=== PATIENT | female | born 1930 | race Caucasian/White ===

== ENCOUNTER 2016-05-18 12:02 | Emergency (ER) | payer MEDICARE, OTHER ==
[~2016-05-18] VITALS: Ht 162.6 cm; Wt 65.9 kg
[2016-05-18 11:40] VITALS: BP 129/94; PULSE 89; RESP 13; O2SAT 96
[~2016-05-18 12:02] MED LIST: ACET325T51 PO; ANAS1TAB7 PO; ASPI-973 PO; CHOL10008 PO; CLOP75TA28 PO; CYA1000I IM; DIPY75TA PO; DOCU50CA7 PO; DONE23TA PO; DULO60CA42 PO; FENO145T19 PO; FOLI-52 PO; HYDR-4003 PO; IRON PO; LACT1CAP73 PO; LACT30003 PO; LOPE1TAB13 PO; MIRA25TA PO; NAM10 PO; PANT20T PO; RANI150C4 PO; SIMV5TAB7 PO; THIA100T64 PO; VIT1CAPS8 PO; ZLP5T PO; calcium PO
--- NOTE | 2016-05-18 12:02 | ED.REPORT ---
HPI-Chest Pain 40 and Over Date of Service May 18, 2016 ED Provider: Dr. Winston A demented 86 year old female with a history of heart burn, TIA, and hypercholesterolemia presents to the ED via EMS from [facility] complaining of chest pain described as a pressure on top of the center of her chest. The patient does not remember the onset of symptoms. Per , intermittent chest pain began 3 days ago. She was scheduled to see her doctor on the . Per , the patient was being taken by her therapist to do physical exercises at the onset of symptoms. She takes hydrocortisone twice per day but can have a 3rd if needed. Per , she took 1 today. She has baseline back pain which she normally wears a patch for, and is normally wheelchair bound with an inability to sit up by herself. She requires assistance getting in and out of a car. Nursing Notes Stated Complaint: CHEST PAIN Chief Complaint: Chest Pain Nursing Notes Reviewed: Yes Allergies: Coded Allergies: amoxicillin (Verified Allergy, Unknown, 11/08/14) Scheduled ([Iron]) 65 MG PO DAILY ([calcium]) 5 MG PO DAILY Anastrozole (Anastrozole) 1 Mg Tablet 1 MG PO DAILY Aspirin (Aspirin) 81 Mg Tablet 81 MG PO DAILY Cholecalciferol (Vitamin D3) (Vitamin D3) 1,000 Unit Tab.chew 1,000 UNIT PO BID Clopidogrel (Clopidogrel) 75 Mg Tablet 75 MG PO DAILY Cyanocobalamin (Cyanocobalamin Injection) 1,000 Mcg/1 Ml Vial 1,000 MCG IM WEEKLY Dipyridamole (Dipyridamole) 75 Mg Tablet 75 MG PO BID Docusate Sodium (Docusate Sodium) 50 Mg Capsule 50 MG PO BID Donepezil (Aricept) 23 Mg Tablet 23 MG PO HS Duloxetine (Cymbalta) 60 Mg Capsule.dr 60 MG PO DAILY Fenofibrate Nanocrystallized (Fenofibrate) 145 Mg Tablet 160 MG PO HS Lactobacillus Combo No.11 (Probiotic) 1 Each Cap.sprink 1 EACH PO DAILY Memantine (Namenda) 10 Mg Tablet 10 MG PO BID Mirabegron ER (Myrbetriq) 25 Mg Tab.er.24h 25 MG PO HS Multivitamin/Iron/Folic Acid (Centrum Complete Multivit Tab) 1 Each Tablet 1 TAB PO DAILY Pantoprazole DR (Protonix) 20 Mg Tablet 20 MG PO DAILY Ranitidine (Ranitidine) 150 Mg Capsule 150 MG PO BID Simvastatin (Simvastatin) 5 Mg Tablet 5 MG PO HS Thiamine Mononitrate (Vitamin B-1) 100 Mg Tablet 100 MG PO HS Vit C/Vit E/Lutein/Min/[place]-3 (Ocuvite Softgel) 1 Each Capsule 1 EACH PO DAILY Scheduled PRN Acetaminophen (Acetaminophen) 325 Mg Tablet 500 MG PO BID PRN PRN For Pain Hydrocodone-Acetaminophen 5-325 mg (Hydrocodone-Acetaminophen 5-325 mg) 1 Each Tablet 1 EACH PO BID PRN PRN For Pain Loperamide/Simethicone (Imodium Multi-Symptom Rel Cplt) 1 Each Tablet 1 EACH PO PRN PRN PRN For Diarrhea or Loose Stool Zolpidem (Ambien) 5 Mg Tab 10 MG PO HS PRN PRN For Insomnia Miscellaneous Medications Lactase (Lactase) 3,000 Unit Tablet Unknown Dose PO General Time Seen by MD: 12:02 Transferred From: skilled nursing Chief Complaint Chest pain Hx Obtained From: Patient, EMS Arrived By: Ambulance Sudden in Onset?: Yes Onset Occurred: Onset unknown Symptom Duration: Intermittent Severity: Current: Moderate Severity: Maximum: Moderate Recent Healthcare: No recent doctor visit Similar Sx Previous: No Past Medical History Past Medical History Notes: Last Admit for CVA 03/2013 - records indicate Plavix use (pt does not presently know meds), h/o mild ventriculomegaly Past Medical History Bladder infections- recurrent Insomnia Chronic pain with narcotic dependence Osteoarthritis Vitamin B12 deficiency Breast cancer S/P mastectomy 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 ) Complete sys rev & neg: except as marked. Physical Exam Initial Vital Signs Vital Signs (First) Date Time Temp Pulse Resp B/P Pulse Ox O2 Delivery O2 Flow Rate FiO2 05/18/16 11:40 37.1 89 13 129/94 96 Room Air Initial VS: Reviewed General/Constitutional: Awake, Alert Respiratory / Chest: Atraumatic, Breath sounds NL, Breath sounds = bilat, No respiratory distress, No rales, No rhonchi Cardiovascular: Heart rate NL, Regular rhythm, Heart sounds NL, No gallop, No murmurs, No rubs Abdomen: Atraumatic, No guarding, No rebound Neck: Atraumatic, Full range of motion Lower Extremity / Pelvis / MS: Atraumatic, Inspection NL No edema in lower extremities. Skin: Atraumatic, Color NL, Warm, Dry Patient is pleasantly forgetful. Head / Eyes: Atraumatic, Normocephalic ENT: Atraumatic, Mucous membranes moist Upper Extremity / MS: Atraumatic, Full range of motion Wrist / Hand: Atraumatic, Full range of motion Interpretation & Diagnostics Lab Results Interpretation Result Diagram: 05/18/16 1215 05/18/16 1215 Test 05/18/16 12:15 White Blood Count 7.1th/mm3 (3.8-10.1) Red Blood Count 4.43mil/mm3 (3.90-5.20) Hemoglobin 13.8g/dL (12.0-15.6) Hematocrit 43.5% (35.0-46.0) Mean Corpuscular Volume 98.2fL (81-100) Mean Corpuscular Hemoglobin 31.2pg (27.0-35.0) Mean Corpuscular Hemoglobin Concent 31.7% (32.0-37.0) Red Cell Distribution Width 14.1% (12.3-15.4) Platelet Count 261bil/L (150-400) Neutrophils (%) (Auto) 71.9% (40-74) Lymphocytes (%) (Auto) 19.7% (14-46) Monocytes (%) (Auto) 4.9% (4-12) Eosinophils (%) (Auto) 2.8% (0-5) Basophils (%) (Auto) 0.6% (0-3) Sodium Level 139mEq/L (134-144) Potassium Level 4.3mEq/L (3.5-5.2) Chloride Level 101mEq/L (97-108) Carbon Dioxide Level 24mmol/L (18-29) Blood Urea Nitrogen 15mg/dL (8-27) Creatinine 0.90mg/dL (0.57-1.00) Estimat Glomerular Filtration Rate 85mL/min (>59) Glucose Level 167mg/dL (60-99) Calcium Level 9.7mg/dL (8.5-10.1) Magnesium Level 2.0mg/dL (1.6-2.6) Total Bilirubin 0.3mg/dL (0.0-1.2) Aspartate Amino Transf (AST/SGOT) 25U/L (0-50) Alanine Aminotransferase (ALT/SGPT) 22U/L (0-32) Alkaline Phosphatase 54U/L (25-165) Troponin T 0.010ug/L (0.0-0.011) Total Protein 8.1g/dL (6.4-8.4) Albumin 3.3g/dL (3.4-5.0) ECG Interpretation ECG Interpretation: Rate is 92. Sinus Rhythm. Left anterior fasicular block. Consider left ventricular hypertrophy. No acute ischemia. Time: 12:00 Interpreted by: ED physician X-Ray Chest Interpretation Chest Xray Interpretation: IMPRESSION: No acute process. Dictated by: Pauline Woods M.D. on 05/18/2016 at 12:34 Approved by: Pauline Woods M.D. on 05/18/2016 at 12:34 View: Portable, 1 view Re-Eval/Medical Decision Source of Hx: Old records, EMS Time of Eval: 13:40 Re-Evaluation/Progress Note: Rechecked the patient, explained test results, diagnosis, and plan for discharge. The patient understands and agrees with the plan. All questions addressed. Counseled Regarding: Diagnosis, Lab results, Need for follow-up, When/why to return to ED Discharge & Departure Primary Impression: Anterior chest wall pain Ruled Out: Congestive cardiac failure, STEMI (ST elevation myocardial infarction), Pneumonia Disposition: Home Discharge Condition All VS Reviewed: Yes Condition: Improved Patient Instructions: Chest Pain (ED) Additional Instructions: Your workup today was very reassuring. I found no life threatening causes for the pain that you are experiencing. The fact that I can press on your chest and it reproduces your pain is very encouraging for a musculoskeletal explanation for your pain. It is safe to return back to [place]. You do not need to change any of your medications. If you continue to have this pain, you can use your usual pain medications If you are having more difficulty please feel free to return to the emergency department Thank you for visiting us today Referrals: Oz South MD (PCP) Luis Attestation Portions of this note were transcribed by Tom Culp. I, Dr. Winston, personally performed the history, physical exam, and medical decision-making: I reviewed and confirmed the accuracy for the information in the transcribed note. Signed by: luis Rosario, 05/18/16 1348. copies to: Oz South MD, Shawna L MD May 18, 2016 12:02 Tom Culp May 18, 2016 12:21 Signed by: luis Rosario, 05/18/16 1348. copies to: Oz South MD, Shawna L MD May 18, 2016 12:02 Tom Culp May 18, 2016 12:21
[2016-05-18 12:18] LABS: BASOPHILS % (AUTO) 0.6 % (0-3); EOSINOPHILS % (AUTO) 2.8 % (0-5); MONOCYTES % (AUTO) 4.9 % (4-12); Mean Corpuscular Hemoglobin 31.2 pg (27.0-35.0); Mean Corpuscular Volume 98.2 fL (81-100); NEUTROPHILS % (AUTO) 71.9 % (40-74); Platelet Count 261 bil/L (150-400)
--- NOTE | 2016-05-18 12:36 | DRSVH ---
PROCEDURE: X-RAY CHEST ONE VIEW, PORTABLE ([id number]) INDICATIONS: chest pain TECHNIQUE: One view of the chest was acquired. COMPARISON: [facility], , CHEST 1VW (PORTABLE), 10/06/2011, 16:49. [facility], CHEST 1VW (PORTABLE), 08/19/2011, 9:37. [facility], CHEST 2VW, 07/13/2012, 10 :58. FINDINGS: Surgical changes and devices: None. Lungs and pleura: No pleural effusions or pneumothorax. Lungs are clear. Mediastinum: Mediastinal contours appear normal. Heart size is normal. Bones and chest wall: No suspicious bony lesions. Overlying soft tissues appear unremarkable. IMPRESSION: No acute process. Dictated by: Pauline Woods M.D. on 05/18/2016 at 12:34 Approved by: Pauline Woods M.D. on 05/18/2016 at 12:34
[2016-05-18 12:42] LABS: TROPONIN T 0.01 ug/L (0.0-0.011)
[2016-05-18 14:53] VITALS: BP 140/96; PULSE 75; RESP 16; O2SAT 98
== END 2016-05-18 14:20 | disposition home or self-care (01) ==
LOC: EDBD 12:02 → SED 12:02
DX: R07.89 Other chest pain (principal); M54.9 Dorsalgia, unspecified; I10 Essential (primary) hypertension; K21.9 Gastro-esophageal reflux disease without esophagitis; F03.90 Unspecified dementia, unspecified severity, without behavioral disturbance, psychotic disturbance, mood disturbance, and anxiety; E78.5 Hyperlipidemia, unspecified; Z86.73 Personal history of transient ischemic attack (TIA), and cerebral infarction without residual deficits; Z79.82 Long term (current) use of aspirin; Z87.891 Personal history of nicotine dependence; Z88.1 Allergy status to other antibiotic agents

== ENCOUNTER 2016-10-08 15:58 | Emergency (ER) | payer MEDICARE, OTHER ==
[~2016-10-08] VITALS: Ht 170.2 cm; Wt 84.1 kg
[2016-10-08 16:10] VITALS: BP 151/101; PULSE 95; RESP 16; O2SAT 97
--- NOTE | 2016-10-08 16:10 | ED.REPORT ---
HPI-General Illness Date of Service Oct 08, 2016 ED Provider: Quique Fitzgerald MD A demented 86 year old female with a history of TIA, hypertension, hyperlipidemia, and L breast cancer s/p mastectomy (in remission) presents to the ED via EMS from [facility] with generalized weakness that began a few weeks ago but became increasingly worse this morning. reports that it has been extremely difficult to move the patient from her bed onto the wheelchair. Patient is currently expressing concern for a TIA because of visual disturbances and left-sided weakness that began this morning. She denies any recent fever, chills, nausea, vomiting, cough, abdominal pain, urinary retention or dysuria. Current medication list includes aspirin and Plavix. Nursing Notes Stated Complaint: EXCESSIVE WEAKNESS Nursing Notes Reviewed: Yes Allergies: Coded Allergies: amoxicillin (Verified Allergy, Unknown, 11/08/14) Scheduled ([Iron]) 65 MG PO DAILY ([calcium]) 5 MG PO DAILY Anastrozole (Anastrozole) 1 Mg Tablet 1 MG PO DAILY Aspirin (Aspirin) 81 Mg Tablet 81 MG PO DAILY Cholecalciferol (Vitamin D3) (Vitamin D3) 1,000 Unit Tab.chew 1,000 UNIT PO BID Clopidogrel (Clopidogrel) 75 Mg Tablet 75 MG PO DAILY Cyanocobalamin (Cyanocobalamin Injection) 1,000 Mcg/1 Ml Vial 1,000 MCG IM WEEKLY Dipyridamole (Dipyridamole) 75 Mg Tablet 75 MG PO BID Docusate Sodium (Docusate Sodium) 50 Mg Capsule 50 MG PO BID Donepezil (Aricept) 23 Mg Tablet 23 MG PO HS Duloxetine (Cymbalta) 60 Mg Capsule.dr 60 MG PO DAILY Fenofibrate Nanocrystallized (Fenofibrate) 145 Mg Tablet 160 MG PO HS Lactobacillus Combo No.11 (Probiotic) 1 Each Cap.sprink 1 EACH PO DAILY Memantine (Namenda) 10 Mg Tablet 10 MG PO BID Mirabegron ER (Myrbetriq) 25 Mg Tab.er.24h 25 MG PO HS Multivitamin/Iron/Folic Acid (Centrum Complete Multivit Tab) 1 Each Tablet 1 TAB PO DAILY Pantoprazole DR (Protonix) 20 Mg Tablet 20 MG PO DAILY Ranitidine (Ranitidine) 150 Mg Capsule 150 MG PO BID Simvastatin (Simvastatin) 5 Mg Tablet 5 MG PO HS Thiamine Mononitrate (Vitamin B-1) 100 Mg Tablet 100 MG PO HS Vit C/Vit E/Lutein/Min/[place]-3 (Ocuvite Softgel) 1 Each Capsule 1 EACH PO DAILY Scheduled PRN Acetaminophen (Acetaminophen) 325 Mg Tablet 500 MG PO BID PRN PRN For Pain Hydrocodone-Acetaminophen 5-325 mg (Hydrocodone-Acetaminophen 5-325 mg) 1 Each Tablet 1 EACH PO BID PRN PRN For Pain Loperamide/Simethicone (Imodium Multi-Symptom Rel Cplt) 1 Each Tablet 1 EACH PO PRN PRN PRN For Diarrhea or Loose Stool Zolpidem (Ambien) 5 Mg Tab 10 MG PO HS PRN PRN For Insomnia Miscellaneous Medications Lactase (Lactase) 3,000 Unit Tablet Unknown Dose PO General Time Seen by MD: 16:07 Chief Complaint Weakness Hx Obtained From: Patient Arrived By: Ambulance Sudden in Onset?: No Onset Occurred: More than a week ago... 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 h/o mild dementia Reports: GERD, Hyperlipidemia, Hypertension, Transient ischemic attack Reports: Dementia Past Surgical History Mastectomy L breast Lumbar laminectomy L hemiarthroplasty in 2011 Reports: Cataract surgery, Hysterectomy, Tonsillectomy Smoking History Former Smoker Social History Alcohol Use: "Social" Other Social History: , Lives in [place] Ambulatory Status Wheelchair Review of Systems Full Review of Systems Constitutional: Denies: Chills, Fever GI: Denies: Abdominal pain, Nausea, Vomiting Female: Denies: Dysuria, Urination decreased Neurologic: Reports: Vision change, Weakness (Left-sided) Complete sys rev & neg: except as marked. Physical Exam Vital Signs Vital Signs Date Time Temp Pulse Resp B/P Pulse Ox O2 Delivery O2 Flow Rate FiO2 10/08/16 16:10 36.7 95 16 151/101 97 Room Air Initial VS: Reviewed Neck: Supple, Non-tender, Full range of motion Skin: Warm, Dry, No cyanosis Psychiatric: Mood/affect normal, Behavior normal, Normal thought content General/Constitutional: Awake, Alert, No acute distress, Well appearing, Well developed Head / Eyes: Atraumatic, Normocephalic, PERRL Respiratory / Chest: Atraumatic, Breath sounds NL, Breath sounds = bilat, No respiratory distress Cardiovascular: Heart rate NL, Regular rhythm, Heart sounds NL Lower Ext Edema: Positive: Bilateral 1+ Abdomen: Atraumatic, Soft, Non-tender Upper Extremities Upper Extremity / MS: Atraumatic, Inspection NL, Neurologic intact, Vascular intact Lower Extremity / Pelvis / MS: Atraumatic, Inspection NL, Vascular intact LOWER EXTREMITIES: Bilateral weakness in the lower extremities Interpretation & Diagnostics Lab Results Interpretation Result Diagram: 10/08/16 1640 10/08/16 1640 Test 10/08/16 16:40 10/08/16 17:28 White Blood Count 7.9th/mm3 (3.8-10.1) Red Blood Count 4.28mil/mm3 (3.90-5.20) Hemoglobin 13.6g/dL (12.0-15.6) Hematocrit 42.4% (35.0-46.0) Mean Corpuscular Volume 99.1fL (81-100) Mean Corpuscular Hemoglobin 31.8pg (27.0-35.0) Mean Corpuscular Hemoglobin Concent 32.1% (32.0-37.0) Red Cell Distribution Width 13.5% (12.3-15.4) Platelet Count 198bil/L (150-400) Neutrophils (%) (Auto) 74.1% (40-74) Lymphocytes (%) (Auto) 14.3% (14-46) Monocytes (%) (Auto) 8.4% (4-12) Eosinophils (%) (Auto) 2.4% (0-5) Basophils (%) (Auto) 0.4% (0-3) Prothrombin Time 9.7sec (8.1-12.5) Prothromb Time International Ratio 0.91ratio Sodium Level 141mEq/L (134-144) Potassium Level 4.3mEq/L (3.5-5.2) Chloride Level 102mEq/L (97-108) Carbon Dioxide Level 23mmol/L (18-29) Blood Urea Nitrogen 14mg/dL (8-27) Creatinine 0.95mg/dL (0.57-1.00) Estimat Glomerular Filtration Rate 80mL/min (>59) Glucose Level 150mg/dL (60-99) Calcium Level 9.6mg/dL (8.5-10.1) Magnesium Level 1.9mg/dL (1.6-2.6) Total Bilirubin 0.2mg/dL (0.0-1.2) Aspartate Amino Transf (AST/SGOT) 45U/L (0-50) Alanine Aminotransferase (ALT/SGPT) 30U/L (0-32) Alkaline Phosphatase 66U/L (25-165) Troponin T < 0.010ug/L (0.0-0.011) Total Protein 7.5g/dL (6.4-8.4) Albumin 3.5g/dL (3.4-5.0) Urine Color Yellow (YELLOW) Urine Appearance Clear (CLEAR,HAZY) Urine pH 5.5 (5.0-8.0) Urine Specific [place] 1.020 (1.003-1.035) Urine Protein Negativemg/dL (NEG,TRACE) Urine Glucose (UA) Negativemg/dL (NEGATIVE) Urine Ketones Negativemg/dL (NEGATIVE) Urine Occult Blood Trace (NEGATIVE) Urine Nitrite Negative (NEGATIVE) Urine Bilirubin Negative (NEGATIVE) Urine Urobilinogen Normalmg/dL (NORMAL) Urine Leukocyte Esterase Small (NEGATIVE) Urine RBC 0-2/hpf (0-2) Urine WBC 0-5/hpf (0-5) Urine Epithelial Cells Few/hpf (NONE-MOD) Urine Crystals None seen (NONE SEEN) Urine Bacteria Many/hpf (NONE-FEW) Urine Hyaline Casts None/lpf (NONE) Urine Granular Casts None seen (NONE SEEN) Urine Waxy Casts None seen (NONE SEEN) Urine Red Blood Cell Casts None seen (NONE SEEN) Urine White Blood Cell Casts None seen (NONE SEEN) Urine Mucus None seen (None Seen) Urine Trichomonas None seen (NONE SEEN) Urine Yeast None (NONE SEEN) Urinalysis Comment None Urine Culture Reflexed Indicated ECG Interpretation ECG Interpretation: Sinus rhythm Rate 96 Left anterior fascicular block Time: 16:44 Interpreted by: ED physician Normal ECG Interpretation: No change from prior ECGs (05/18/16) X-Ray Chest Interpretation Chest Xray Interpretation: IMPRESSION: 1. A retrocardiac density. Recommend the lateral-view for further assessment. Dictated by: Guillermo Rojo M.D. on 10/08/2016 at 17:01 Interpretation / Wet Read by: Interpret - Radiologist Re-Eval/Medical Decision Med Decision/Clinical Course This woman's complaints are fairly vague. She says that she feels generally somewhat weak. She has no lateralizing symptoms and a negative fairly thorough workup. She says the baseline she requires the assistance of one or 2 people to do even basic transfers. I believe that a period of watchful waiting is the next appropriate step and I believe that this can safely be accomplished at her place of residence at [facility]. Time of Eval: 18:10 Patient Status: Condition improved Re-Evaluation/Progress Note: Pt is informed of her results and diagnosis. All questions are addressed at this time. She understand and agree with the intended treatment plan. Counseled Regarding: Diagnosis, Lab results, Need for follow-up, When/why to return to ED Discharge & Departure Primary Impression: Weakness Disposition: Home Discharge Condition All VS Reviewed: Yes Condition: Stable Patient Instructions: Weakness (ED) Additional Instructions: Thank you for trusting us with you care this evening. Your emergency department evaluation today including lab work, EKG and chest X- ray are reassuring that there is no emergent cause for concern at this time, however, a clear cause of your symptoms was not identified. I recommend that you follow up with your primary care physician in the next 2-3 days for a recheck. Please return to the emergency department for any new or worsening symptoms including lightheadedness, worsening weakness, fevers, chills, nausea, vomiting , pain, or any numbness/tingling. Referrals: Oz South MD (PCP) Scribe Attestation Portions of this note were transcribed by Bernie Edmonds. I, Dr. Fitzgerald personally performed the history, physical exam and medical decision-making; I reviewed and confirmed the accuracy of the information in the transcribed note. copies to: Oz South MD, Kirk H MD Oct 08, 2016 16:09 BERNIE EDMONDS Oct 08, 2016 16:18
[2016-10-08 16:53] LABS: BASOPHILS % (AUTO) 0.4 % (0-3); EOSINOPHILS % (AUTO) 2.4 % (0-5); MONOCYTES % (AUTO) 8.4 % (4-12); Mean Corpuscular Hemoglobin 31.8 pg (27.0-35.0); Mean Corpuscular Volume 99.1 fL (81-100); NEUTROPHILS % (AUTO) 74.1 % (40-74); Platelet Count 198 bil/L (150-400)
--- NOTE | 2016-10-08 17:05 | DRSVH ---
PROCEDURE: X-RAY CHEST ONE VIEW, PORTABLE ([id number]) INDICATIONS: SHORT OF BREATH TECHNIQUE: One view of the chest was acquired. COMPARISON: [facility], CR, CHEST 2VW, 07/13/2012, 10:58. [facility], CR, XR CHEST 1VW (PORTABLE), 05/18/2016, 12:18. FINDINGS: Surgical changes and devices: None. Lungs and pleura: There is a retrocardiac density. Mild diffuse interstitial prominence. no pleural e ffusions or pneumothorax. Mediastinum: Mediastinal contours appear normal. Heart size is normal. Bones and chest wall: No suspicious bony lesions. Overlying soft tissues appear unremarkable. IMPRESSION: 1. A retrocardiac density. Recommend the lateral-view for further assessment. Dictated by: Guillermo Rojo M.D. on 10/08/2016 at 17:01 Approved by: Guillermo Rojo M.D. on 10/08/2016 at 17:03
[2016-10-08 17:11] LABS: INR 0.91 ratio
[2016-10-08 17:18] LABS: TROPONIN T < 0.010 ug/L (0.0-0.011)
[2016-10-08 17:28] LABS: Magnesium 1.9 mg/dL (1.6-2.6)
[2016-10-08 17:44] LABS: APPEARANCE,URINE CLEAR (CLEAR,HAZY); COLOR,URINE YELLOW (YELLOW); OCCULT BLOOD,URINE TRACE (NEGATIVE); PH,URINE 5.5 (5.0-8.0); UROBILINOGEN,URINE NORMAL (NORMAL)
[2016-10-08 18:58] VITALS: BP 158/86; PULSE 89; RESP 18; O2SAT 96
== END 2016-10-08 19:00 | disposition home or self-care (01) ==
LOC: SED 15:58 → EDUNIT# 15:58 → EDBD 15:58 → SED 19:00
DX: R53.1 Weakness (principal); I10 Essential (primary) hypertension; K21.9 Gastro-esophageal reflux disease without esophagitis; Z86.73 Personal history of transient ischemic attack (TIA), and cerebral infarction without residual deficits; Z85.3 Personal history of malignant neoplasm of breast; Z87.891 Personal history of nicotine dependence; Z79.82 Long term (current) use of aspirin; Z88.1 Allergy status to other antibiotic agents

== ENCOUNTER 2016-11-23 14:18 | Emergency (ER) | payer MEDICARE, OTHER ==
[~2016-11-23] VITALS: Ht 162.6 cm; Wt 66.0 kg
[2016-11-23 14:23] VITALS: BP 138/94; PULSE 100; RESP 15; O2SAT 95
[2016-11-23 14:49] LABS: BASOPHILS % (AUTO) 0.7 % (0-3); EOSINOPHILS % (AUTO) 2.3 % (0-5); MONOCYTES % (AUTO) 9.2 % (4-12); Mean Corpuscular Hemoglobin 31.9 pg (27.0-35.0); Mean Corpuscular Volume 97.4 fL (81-100); NEUTROPHILS % (AUTO) 71.2 % (40-74); Platelet Count 218 bil/L (150-400)
[2016-11-23] MEDS ORDERED: MIRA25TA PO (14:51)
[2016-11-23] MEDS ORDERED: [UNRECOGNIZED DRUG - OTHER] RECTAL (14:51)
[2016-11-23] MEDS ORDERED: GABA-500 PO (14:51)
--- NOTE | 2016-11-23 15:05 | ED.REPORT ---
HPI-General Illness Date of Service Nov 23, 2016 ED Provider: Juan Carlos Membreno DO An 86 year old female with a history of hypertension, recurrent UTI, chronic pain, dementia, and multiple TIA/CVA's is brought to the ED via EMS due to weakness. The pt resides at [facility] where staff noted that the pt was weak and fatigued with an elevated heart rate. Staff also suspects that she has had a UTI for four to five days. In the ED, the pt feels at her baseline and denies cough, shortness of breath or diarrhea. She admits to baseline abdominal pain but states that it has not changed. Nursing Notes Stated Complaint: INCREASED WEAKNESS Chief Complaint: General Complaint Nursing Notes Reviewed: Yes Allergies: Coded Allergies: amoxicillin (Verified Allergy, Unknown, 11/23/16) Scheduled ([Iron]) 65 MG PO DAILY ([calcium]) 5 MG PO DAILY ([[id number]]) 1 APPLIC RECTAL BID Anastrozole (Anastrozole) 1 Mg Tablet 1 MG PO DAILY Aspirin (Aspirin) 81 Mg Tablet 81 MG PO DAILY Cholecalciferol (Vitamin D3) (Vitamin D3) 1,000 Unit Tab.chew 1,000 UNIT PO DAILY Clopidogrel (Clopidogrel) 75 Mg Tablet 75 MG PO DAILY Cyanocobalamin (Cyanocobalamin Injection) 1,000 Mcg/1 Ml Vial 1,000 MCG IM WEEKLY Dipyridamole (Dipyridamole) 75 Mg Tablet 75 MG PO BID Docusate Sodium (Docusate Sodium) 50 Mg Capsule 50 MG PO BID Donepezil (Aricept) 23 Mg Tablet 23 MG PO HS Duloxetine (Cymbalta) 60 Mg Capsule.dr 60 MG PO DAILY Fenofibrate Nanocrystallized (Fenofibrate) 145 Mg Tablet 160 MG PO HS Gabapentin (Gabapentin) 100 Mg Capsule 200 MG PO HS Lactobacillus Combo No.11 (Probiotic) 1 Each Cap.sprink 1 EACH PO DAILY Memantine (Namenda) 10 Mg Tablet 10 MG PO BID Mirabegron ER (Myrbetriq) 25 Mg Tab.er.24h 25 MG PO HS Mirabegron ER (Myrbetriq) 25 Mg Tablet 25 MG PO DAILY Multivitamin/Iron/Folic Acid (Centrum Complete Multivit Tab) 1 Each Tablet 1 TAB PO DAILY Pantoprazole DR (Protonix) 20 Mg Tablet 20 MG PO DAILY Ranitidine (Ranitidine) 150 Mg Capsule 150 MG PO BID Simvastatin (Simvastatin) 5 Mg Tablet 5 MG PO HS Thiamine Mononitrate (Vitamin B-1) 100 Mg Tablet 100 MG PO HS Vit C/Vit E/Lutein/Min/[place]-3 (Ocuvite Softgel) 1 Each Capsule 1 EACH PO DAILY Scheduled PRN Acetaminophen (Acetaminophen) 325 Mg Tablet 500 MG PO BID PRN PRN For Pain Hydrocodone-Acetaminophen 5-325 mg (Hydrocodone-Acetaminophen 5-325 mg) 1 Each Tablet 1 EACH PO BID PRN PRN For Pain Loperamide/Simethicone (Imodium Multi-Symptom Rel Cplt) 1 Each Tablet 1 EACH PO PRN PRN PRN For Diarrhea or Loose Stool Zolpidem (Ambien) 5 Mg Tab 5 MG PO HS PRN PRN For Insomnia Miscellaneous Medications Lactase (Lactase) 3,000 Unit Tablet Unknown Dose PO General Time Seen by MD: 15:04 Chief Complaint Weakness Hx Obtained From: Patient, EMS Arrived By: Ambulance Sudden in Onset?: No Onset Occurred: 5 - 8 hours ago Symptom Duration: Since onset Recent Healthcare: No recent hospitalization, Recent doctor visit Past Medical History Past Medical History UTI- recurrent Insomnia Chronic pain with narcotic dependence Osteoarthritis Vitamin B12 deficiency Breast cancer S/P mastectomy H/o multiple TIA/CVA's in the past h/o mild dementia Reports: GERD, Hyperlipidemia, Hypertension, Transient ischemic attack Reports: Dementia Past Surgical History Mastectomy L breast Lumbar laminectomy L hemiarthroplasty in 2011 Reports: Cataract surgery, Hysterectomy, Tonsillectomy Smoking History Never Smoker Social History Alcohol Use: "Social" Other Social History: , Lives in [facility] Ambulatory Status Wheelchair Review of Systems rapid heart rate Full Review of Systems Constitutional: Reports: Fatigue Respiratory: Denies: Non-productive cough, Shortness of breath Cardiovascular: Denies: Chest pain GI: Reports: Abdominal pain (baseline, no change), Denies: Diarrhea, Vomiting Musculoskeletal: Denies: Back pain, Neck pain Skin: Denies Rash Neurologic: Reports: Weakness Complete sys rev & neg: except as marked. Physical Exam Vital Signs Vital Signs Date Time Temp Pulse Resp B/P Pulse Ox O2 Delivery O2 Flow Rate FiO2 11/23/16 17:06 88 18 168/101 95 Room Air 11/23/16 14:23 36.9 100 15 138/94 95 Room Air Initial VS: Reviewed General/Constitutional: Awake, Alert Head / Eyes: Atraumatic, Normocephalic, PERRL, EOMI ENT: Atraumatic, Airway patent, Mucous membranes moist Neck: Atraumatic, Supple, Full range of motion Respiratory / Chest: Atraumatic, Breath sounds NL, Breath sounds = bilat, No respiratory distress Cardiovascular: Heart rate NL, Regular rhythm, Heart sounds NL Abdomen: Atraumatic, Soft, Non-tender Back: Atraumatic, Full range of motion Upper Extremities Upper Extremity / MS: Atraumatic, Full range of motion Lower Extremity / Pelvis / MS: Atraumatic, Full range of motion, No edema Skin: Atraumatic, Color NL, No rash, Warm, Dry Neurologic: Oriented X3, Speech NL, No motor deficits, No sensory deficits Psychiatric: Affect NL, Mood NL Interpretation & Diagnostics Lab Results Interpretation Result Diagram: 11/23/16 1446 11/23/16 1446 Test 11/23/16 14:35 11/23/16 14:46 Urine Color Yellow (YELLOW) Urine Appearance Hazy (CLEAR,HAZY) Urine pH 6.0 (5.0-8.0) Urine Specific [place] 1.025 (1.003-1.035) Urine Protein Negativemg/dL (NEG,TRACE) Urine Glucose (UA) Negativemg/dL (NEGATIVE) Urine Ketones Negativemg/dL (NEGATIVE) Urine Occult Blood Negative (NEGATIVE) Urine Nitrite Negative (NEGATIVE) Urine Bilirubin Negative (NEGATIVE) Urine Urobilinogen Normalmg/dL (NORMAL) Urine Leukocyte Esterase Negative (NEGATIVE) Urine RBC 0-2/hpf (0-2) Urine WBC 0-5/hpf (0-5) Urine Epithelial Cells Occasional/hpf (NONE-MOD) Urine Crystals None seen (NONE SEEN) Urine Bacteria Few/hpf (NONE-FEW) Urine Hyaline Casts None/lpf (NONE) Urine Granular Casts None seen (NONE SEEN) Urine Waxy Casts None seen (NONE SEEN) Urine Red Blood Cell Casts None seen (NONE SEEN) Urine White Blood Cell Casts None seen (NONE SEEN) Urine Mucus Present (None Seen) Urine Trichomonas None seen (NONE SEEN) Urine Yeast None (NONE SEEN) Urinalysis Comment None Urine Culture Reflexed Not indicated White Blood Count 6.1th/mm3 (3.8-10.1) Red Blood Count 4.64mil/mm3 (3.90-5.20) Hemoglobin 14.8g/dL (12.0-15.6) Hematocrit 45.2% (35.0-46.0) Mean Corpuscular Volume 97.4fL (81-100) Mean Corpuscular Hemoglobin 31.9pg (27.0-35.0) Mean Corpuscular Hemoglobin Concent 32.7% (32.0-37.0) Red Cell Distribution Width 13.7% (12.3-15.4) Platelet Count 218bil/L (150-400) Neutrophils (%) (Auto) 71.2% (40-74) Lymphocytes (%) (Auto) 16.4% (14-46) Monocytes (%) (Auto) 9.2% (4-12) Eosinophils (%) (Auto) 2.3% (0-5) Basophils (%) (Auto) 0.7% (0-3) Sodium Level 139mEq/L (134-144) Potassium Level 3.9mEq/L (3.5-5.2) Chloride Level 101mEq/L (97-108) Carbon Dioxide Level 22mmol/L (18-29) Blood Urea Nitrogen 15mg/dL (8-27) Creatinine 0.93mg/dL (0.57-1.00) Estimat Glomerular Filtration Rate 82mL/min (>59) Glucose Level 179mg/dL (60-99) Calcium Level 9.9mg/dL (8.5-10.1) Total Bilirubin 0.3mg/dL (0.0-1.2) Aspartate Amino Transf (AST/SGOT) 38U/L (0-50) Alanine Aminotransferase (ALT/SGPT) 25U/L (0-32) Alkaline Phosphatase 60U/L (25-165) Total Protein 7.8g/dL (6.4-8.4) Albumin 3.6g/dL (3.4-5.0) ECG Interpretation ECG Interpretation: normal sinus rhythm with a rate of 94 left anterior fascicular block LVH prolonged QT interval no ST elevation or depression when compared 10/08/2016 there are no acute changes Time: 15:57 Interpreted by: ED physician X-Ray Chest Interpretation Chest Xray Interpretation: IMPRESSION: 1. No acute cardiopulmonary disease. 2. Mild atelectasis or scarring redemonstrated in the left lung base as well as chronic interstitial opacities. Dictated by: Marcellus Salmon M.D. on 11/23/2016 at 15:13 Approved by: Marcellus Salmon M.D. on 11/23/2016 at 15:15 Interpretation / Wet Read by: Interpret - Radiologist Re-Eval/Medical Decision Med Decision/Clinical Course 86-year-old female sent from [facility] due to increased fatigue and reported fast heart rate in the upper 100s. Here on initial arrival her heart rate was 100 and at the time of her EKG heart rate had slowed to mid 90s. She was given 1 L of fluids and heart rate continued to normalize further. Her workup including complete blood count, CMP, chest x-ray, and urinalysis are all normal. I do not see any reason for fatigue, and patient notes that she feels at her baseline currently. She is alert and oriented 3. I discussed her care with [facility] and they will see her back. Her is coming to pick her up. Source of Hx: Old records Time of Eval: 15:04 Patient Status: Condition improved Re-Evaluation/Progress Note: Pt is informed of the diagnosis and plan for discharge pending [facility] consult during the initial interview. The pt understands and agrees with the plan. All questions are addressed at this time. Consultation : Call Returned at: 16:18 Note: Spoke with [facility] regarding pt's case. Additional history is obtained. Counseled Regarding: Diagnosis, Lab results, Need for follow-up, When/why to return to ED Discharge & Departure Primary Impression: Weakness Additional Impression: Tachycardia Disposition: Home Discharge Condition All VS Reviewed: Yes Condition: Stable Patient Instructions: Weakness (ED) Additional Instructions: Thank you for entrusting us with your care. There were no abnormalities on your chest x-ray, your urinalysis, or your lab work. Your given 1 bag of IV fluids and your heart rate slowed down. You may have been a little dehydrated leading to some of your symptoms today. Please follow-up with the facility doctor within the next week. Return to the ER for any new or worsening symptoms. Referrals: Oz South MD (PCP) Scribe Attestation Portions of this note were transcribed by Iman Coronado. IDr. Membreno personally performed the history, physical exam and medical decision-making; I reviewed and confirmed the accuracy of the information in the transcribed note. copies to: Oz South MD, Gary R DO Nov 23, 2016 15:05 IMAN CORONADO Nov 23, 2016 15:25
--- NOTE | 2016-11-23 15:17 | DRSVH ---
PROCEDURE: X-RAY CHEST ONE VIEW, PORTABLE ([id number]) INDICATIONS: weakness TECHNIQUE: One view of the chest was acquired. COMPARISON: [facility], CR, CHEST 2VW, 07/13/2012, 10:58. [facility], CR, X R CHEST 2VW, 10/13/2016, 10:15. [facility], CR, XR CHEST 1VW (PORTABLE), 10/08/2016, 16:31 . FINDINGS: Surgical changes and devices: None. Lungs and pleura: No pleural effusions or pneumothorax. There is mild atelectasis or scarring in th e left lung base. Mild chronic peripheral reticular interstitial opacities are redemonstrated. Mediastinum: Mediastinal contours appear unchanged. Heart size is normal. Bones and chest wall: No suspicious bony lesions. Overlying soft tissues appear unremarkable. IMPRESSION: 1. No acute cardiopulmonary disease. 2. Mild atelectasis or scarring redemonstrated in the left lung base as well as chronic interstitial opacities. Dictated by: Marcellus Salmon M.D. on 11/23/2016 at 15:13 Approved by: Marcellus Salmon M.D. on 11/23/2016 at 15:15
[2016-11-23 15:19] LABS: APPEARANCE,URINE HAZY (CLEAR,HAZY); COLOR,URINE YELLOW (YELLOW); OCCULT BLOOD,URINE NEGATIVE (NEGATIVE); UROBILINOGEN,URINE NORMAL (NORMAL)
[2016-11-23] MEDS ORDERED: 0.9% Sodium Chloride 1,000 ML IV ONE (16:19)
[2016-11-23 17:06] VITALS: BP 168/101; PULSE 88; RESP 18; O2SAT 95
== END 2016-11-23 17:08 | disposition home or self-care (01) ==
LOC: SED 14:18
DX: R53.1 Weakness (principal); R00.0 Tachycardia, unspecified; I10 Essential (primary) hypertension; E78.5 Hyperlipidemia, unspecified; K21.9 Gastro-esophageal reflux disease without esophagitis; F03.90 Unspecified dementia, unspecified severity, without behavioral disturbance, psychotic disturbance, mood disturbance, and anxiety; Z86.73 Personal history of transient ischemic attack (TIA), and cerebral infarction without residual deficits; Z85.3 Personal history of malignant neoplasm of breast; Z90.710 Acquired absence of both cervix and uterus; Z79.82 Long term (current) use of aspirin; Z88.0 Allergy status to penicillin
CPT/HCPCS: 36415; 51701; 71010; 80053; 81000; 85025; 93005; 96360; 99284; J7030